=== PATIENT | female | born 1980 | race Caucasian/White ===

== ENCOUNTER 2019-07-11 16:49 | Emergency (ER) | payer BC ==
[~2019-07-11] VITALS: Ht 160 cm; Wt 94.8 kg
[~2019-07-11 16:49] MED LIST: CEPHALEXIN500 MG PO; CYCLOBENZAPRINE10 MG PO; LEVOTHYROXINE100 MCG PO; NAPROXEN500 MG PO; NORCO 10-325 T1 EACH PO; NORCO 5-325 TA1 EACH PO; PHENTERMINE HCL30 MG PO; SULFAMETHOXAZO1 EAC1 PO
--- OUTSIDE RECORDS SUMMARY | 2019-07-11 16:52 | XMS ---
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 [place] VISIT COUNT (12 MO.) 1 DAYAN Mcdonald TOTAL 1 NOTE: Visits indicate total known visits. ED/UCC VISIT TRACKING (12 MO.) 07/11/2019 16:[address] [facility] [place] TYPE: Emergency COMPLAINT: - NUMBNESS, RIGHT SIDE INPATIENT VISIT TRACKING (12 MO.) No inpatient visits to display in this time frame [id number]
[2019-07-11] MEDS ORDERED: ATOMOXETINE HCL18 MG PO (17:01)
[2019-07-11] MEDS ORDERED: PREDNISONE20 MG PO (17:18)
== END 2019-07-11 17:30 | disposition home or self-care (01) ==
LOC: ED 16:49
DX: R20.0 Anesthesia of skin (principal); R20.2 Paresthesia of skin; E03.9 Hypothyroidism, unspecified; F90.9 Attention-deficit hyperactivity disorder, unspecified type; Z79.899 Other long term (current) drug therapy
CPT/HCPCS: 99283; J7512

== ENCOUNTER 2020-08-10 22:46 | Emergency (ER) | payer BC, OTHER ==
[~2020-08-10] VITALS: Ht 160 cm; Wt 3.0 kg
[~2020-08-10 22:46] MED LIST changes: +ATIVAN0.5 MG PO; +ATOMOXETINE HCL18 MG PO; +PREDNISONE20 MG PO
--- OUTSIDE RECORDS SUMMARY | 2020-08-10 22:48 | XMS ---
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 EAlexandro VISIT COUNT (12 MO.) 1 DAYAN Mcdonald TOTAL 1 NOTE: Visits indicate total known visits. ED/UCC VISIT TRACKING (12 MO.) 08/10/2020 22:47 [facility] [place] TYPE: Emergency COMPLAINT: - FEVER/WEAKNESS/HEADACHE INPATIENT VISIT TRACKING (12 MO.) No inpatient visits to display in this time frame [id number]
[2020-08-10] MEDS ORDERED: VITAMIN D350 MC3 PO (23:13)
[2020-08-10] MEDS ORDERED: STRATTERA10 MG (23:13)
--- NOTE | 2020-08-11 17:46 | EKG ---
[facility] [address] [place], [place] [address] Signed Sinus rhythm with short MO Otherwise normal ECG No previous ECGs available Confirmed by LILLIAN JACKMAN MD ([id number] on 08/11/2020 5:45:57 PM Electronically Signed By: LILLIAN JACKMAN MD 08/11/20 1746 PATIENT NAME: IRVIN RIVERA Electrocardiogram DATE OF : 80 PHYSICIAN: LILLIAN JACKMAN MD REPORT #: [id number] REPORT IS CONFIDENTIAL AND NOT TO BE RELEASED WITHOUT AUTHORIZATION
== END 2020-08-11 01:17 | disposition home or self-care (01) ==
LOC: ED 22:46
DX: G43.909 Migraine, unspecified, not intractable, without status migrainosus (principal); R53.1 Weakness; R53.81 Other malaise; B34.9 Viral infection, unspecified; F90.9 Attention-deficit hyperactivity disorder, unspecified type; E03.9 Hypothyroidism, unspecified; Z79.899 Other long term (current) drug therapy
CPT/HCPCS: 71045; 93005; 93010; 96372; 99285-25; J0780; J1200; J1885

== ENCOUNTER 2023-07-28 12:09 | Emergency (ER) | payer OTHER ==
[~2023-07-28] VITALS: Ht 160 cm; Wt 101.9 kg
[~2023-07-28 12:09] MED LIST changes: +AMLODIPINE BESY10 MG PO; +CEFPODOXIME PR200 MG PO; +HYDROCHLOROTH12.5 MG PO; +HYDROCODON-ACE1 EA11 PO; +LEVOTHYROXINE88 MCG PO; +ONDANSETRON ODT8 MG PO; +OXYCODONE HCL5 MG PO; +PHENTERMINE H37.5 MG PO; +STRATTERA10 MG; +TOPAMAX100 MG PO; +VITAMIN D350 MC3 PO
--- OUTSIDE RECORDS SUMMARY | 2023-07-28 12:18 | XMS ---
PreManage Notification: IRVIN RIVERA Security Visual Design Lead Events No recent Security Events currently on file CRITERIA MET - [facility] CARE PROVIDERS [facility] 01/14/2021-Current PHONE: Unknown Tim has no Care Guidelines for this patient. [place] VISIT COUNT (12 MO.) 2 DAYAN Mcdonald TOTAL 2 NOTE: Visits indicate total known visits. ED/UCC VISIT TRACKING (12 MO.) 07/28/2023 12:09 [facility] [place] TYPE: Emergency COMPLAINT: - HEADACHE 01/11/2023 20:02 [facility] [place] TYPE: Emergency COMPLAINT: - HEADACHE AND NUMBNESS INPATIENT VISIT TRACKING (12 MO.) 01/11/2023 20:03 [facility] [place] TYPE: Observation COMPLAINT: - LUEKOCYTOSIS DIAGNOSES: - Atelectasis - Autoimmune thyroiditis - Contact with and (suspected) exposure to COVID-19 - Elevated white blood cell count, unspecified - Essential (primary) hypertension - Fever, unspecified - Fibromyalgia - Irritable bowel syndrome without diarrhea - Other termite helper (current) drug therapy - Other neuromuscular dysfunction of bladder - Pain in left hand - Pain in right hand [email or web address]
[2023-07-28] MEDS ORDERED: OXYCODONE-ACET1 EAC1 PO (12:29)
[2023-07-28] MEDS ORDERED: BUPROPION XL150 MG PO (12:29)
[2023-07-28 13:01] LABS: BASOPHILS 0.6 % (0-2); EOSINOPHILS 0.8 % (0-6); HEMATOCRIT 39.8 % (35.0-50.0); HEMOGLOBIN 13.5 g/dL (12.0-18.0); LYMPHOCYTES 18.5 % (24-44); MCH 29.6 (27-36); MCHC 33.8 g/dl (30-36); MCV 87.4 fl (81-99); MONOCYTES 5.3 % (0-12); NEUTROPHILS 74.8 % (39-80); PLATELET COUNT 382 K/uL (140-440); RBC 4.56 M/ul (4.3-5.7); RDW 13.8 (10.5-15.0)
[2023-07-28 13:15] LABS: ALBUMIN 3.6 g/dL (3.4-5.0); ALBUMIN/GLOBULIN RATIO 0.82 (1.1-2.4); ANION GAP 14.5 (7-21); BILIRUBIN, TOTAL 0.7 ng/dL (0.2-1.0); BUN/CREATININE RATIO 16.3 (6.0-28.6); CALCIUM 9.1 mg/dL (8.5-10.1); CREATININE, SERUM 0.92 mg/dL (0.55-1.02); POTASSIUM 3.5 mmol/L (3.5-5.1)
[2023-07-28 14:15] VITALS: BP 144/91
== END 2023-07-28 14:15 | disposition home or self-care (01) ==
LOC: ED 12:09
PROVIDERS: Emergency Medicine
DX: R51.9 Headache, unspecified (principal); E03.9 Hypothyroidism, unspecified; Z91.011 Allergy to milk products; Z91.018 Allergy to other foods; Z79.899 Other long term (current) drug therapy
CPT/HCPCS: 36415; 80053; 85025; J1170; J1200; J1790; J7030

== ENCOUNTER 2023-11-10 18:55 | Emergency (ER) | payer OTHER ==
[~2023-11-10] VITALS: Ht 160 cm; Wt 101.9 kg
--- NOTE | ~2023-11-10 | EKG ---
[facility] [address] [place], [place] [address] Draft EK completed, results pending confirmation PATIENT NAME: RIVERAIRVIN Bennett Electrocardiogram DATE OF : 80 PHYSICIAN: PRELIMINARY REPORT #: [id number] REPORT IS CONFIDENTIAL AND NOT TO BE RELEASED WITHOUT AUTHORIZATION
[~2023-11-10 18:55] MED LIST changes: +BUPROPION XL150 MG PO; +OXYCODONE-ACET1 EAC1 PO
[2023-11-10 19:11] LABS: BASOPHILS 0.5 % (0-2); EOSINOPHILS 0.9 % (0-6); HEMATOCRIT 39.4 % (35.0-50.0); HEMOGLOBIN 13.2 g/dL (12.0-18.0); LYMPHOCYTES 21.9 % (24-44); MCH 29.2 (27-36); MCHC 33.6 g/dl (30-36); MONOCYTES 5.3 % (0-12); NEUTROPHILS 71.4 % (39-80); PLATELET COUNT 347 K/uL (140-440); RBC 4.53 M/ul (4.3-5.7)
[2023-11-10 19:23] LABS: INR 0.93 (0.80-1.30); PROTIME 11.8 Sec (11.2-14.2)
[2023-11-10 19:30] LABS: ALBUMIN 3.3 g/dL (3.4-5.0); ALBUMIN/GLOBULIN RATIO 0.72 (1.1-2.4); ANION GAP 14.4 (7-21); BILIRUBIN, TOTAL 0.4 ng/dL (0.2-1.0); BUN/CREATININE RATIO 12.24 (6.0-28.6); CALCIUM 8.9 mg/dL (8.5-10.1); CREATININE, SERUM 0.98 mg/dL (0.55-1.02); MAGNESIUM 1.9 mg/dL (1.8-2.4); POTASSIUM 3.4 mmol/L (3.5-5.1); PROTEIN, TOTAL 7.9 g/dL (6.4-8.2)
[2023-11-10 21:23] VITALS: BP 167/101
== END 2023-11-10 21:24 | disposition home or self-care (01) ==
LOC: ED 18:55
PROVIDERS: Family Medicine
DX: R07.89 Other chest pain (principal); Z88.8 Allergy status to other drugs, medicaments and biological substances; Z91.018 Allergy to other foods
CPT/HCPCS: 36415; 71045; 80053; 83735; 84484; 85025; 85379; 85610; 93005; 93010; 99285-25

== ENCOUNTER 2025-05-01 16:11 | Emergency (ER) | payer OTHER ==
[~2025-05-01] VITALS: Ht 160 cm; Wt 83.0 kg
[2025-05-01] MEDS ORDERED: LABETALOL HCL100 MG PO (16:40)
[2025-05-01] MEDS ORDERED: OZEMPIC2 MG/0.75 SQ (16:40)
[2025-05-01] MEDS ORDERED: METHYLPHENIDATE27 MG PO (16:40)
[2025-05-01 16:53] LABS: BASOPHILS 0.5 % (0.1-1.2); EOSINOPHILS 0.8 % (0.7-5.8); LYMPHOCYTES 25.4 % (19.3-51.7); MCH 29.9 PG (25.6-32.2); MCHC 33.2 g/dL (32.2-35.5); MCV 90.0 fL (79.4-94.8); MONOCYTES 5.3 % (4.7-12.5); NEUTROPHILS 67.8 % (34.0-71.1); RBC 4.38 M/uL (3.93-5.22)
[2025-05-01] MEDS ORDERED: TETRACAINE HCL 0.5% 4 ML BTL OU SCH (17:00)
[2025-05-01 17:11] LABS: ALT (SGPT) 21.0 U/L (14-59); AST (SGOT) 16.0 U/L (15-37); GLOMERULAR FILTRATION RATE,EST 75.0 mL/min (>60); PROTEIN, TOTAL 7.9 g/dL (6.4-8.2); TSH, 3RD GENERATION 2.222 uIU/mL (0.358-3.740); UREA NITROGEN 12.0 mg/dL (7-18)
[2025-05-01] MEDS ORDERED: METOCLOPRAMIDE HCL 10 MG/2 ML SDV IV ONE (17:15)
[2025-05-01] MEDS ORDERED: SODIUM CHLORIDE 0.9% 1,000 ML IV PRN (17:15)
[2025-05-01] MEDS ORDERED: KETOROLAC TROMETHAMINE 15 MG/ML VIAL IV ONE (17:15)
[2025-05-01 20:12] VITALS: BP 151/103
== END 2025-05-01 20:10 | disposition home or self-care (01) ==
LOC: ED 16:11
PROVIDERS: Emergency Medicine
DX: G43.109 Migraine with aura, not intractable, without status migrainosus (principal); E03.9 Hypothyroidism, unspecified; Z79.899 Other long term (current) drug therapy; Z91.040 Latex allergy status; Z91.018 Allergy to other foods
CPT/HCPCS: 36415; 70450; 80053; 84439; 84443; 84703; 85025; 99284-25; J1200; J1885; J7030